=== PATIENT | female | born 1955 | race Caucasian/White ===

== ENCOUNTER 2016-09-05 18:09 | Emergency (ER) | payer MEDICAID ==
[~2016-09-05 18:09] MED LIST: ASPI-496 PO; CEFD300C37 PO; CHOL400T38 PO
[2016-09-05] MEDS ORDERED: MORPHINE SULFATE 4 MG/ML, 1ML ONE ×2 (18:59→22:22)
[2016-09-05] MEDS ORDERED: ONDANSETRON 2MG/ML, 2ML ONE (18:59)
[2016-09-05] MEDS ORDERED: OMNIPAQUE 350 MG/ML, 100ML BOTTLE ONE (21:00)
[2016-09-08 11:24] LABS: ASPARTATE AMINO TRANSFERASE 19 U/L (15-37); BLOOD UREA NITROGEN 11 mg/dL (7-18)
== END 2016-09-05 23:50 ==
LOC: ED 18:09
DX: N30.90 Cystitis, unspecified without hematuria (principal); Z88.6 Allergy status to analgesic agent
CPT/HCPCS: 36415; 74177; 80053; 81001; 83690; 85025; 87077; 87086; 87186; 99285; Q9967

== ENCOUNTER 2017-04-27 08:13 | Inpatient (IN) | payer MEDICAID ==
[~2017-04-27] VITALS: Ht 177.8 cm; Wt 128.1 kg
[~2017-04-27 08:13] MED LIST changes: -CHOL400T38 PO; +CHOL400T55 PO
[2017-04-27] MEDS ORDERED: MECLIZINE CHEWABLE 25 MG TAB ONE (08:56)
[2017-04-27] MEDS ORDERED: SODIUM CHLORIDE FLUSH 10ML SYR IVF ONE (09:00)
[2017-04-27] MEDS ORDERED: MECLIZINE CHEWABLE 25 MG TAB PO ONE (09:00)
[2017-04-27] MEDS ORDERED: SODIUM CHLORIDE 0.9% 1,000ML IVBOLUS ONE (09:00)
[2017-04-27 09:10] LABS: BASOPHILS # (AUTO) 0.05 x10^3/uL (0-0.1); BASOPHILS % (AUTO) 1 % (0-1); EOSINOPHILS # (AUTO) 0.06 x10^3/uL (0-0.4); EOSINOPHILS % (AUTO) 1 % (1-7); LYMPHOCYTES # (AUTO) 1.95 x10^3/uL (1-3.4); LYMPHOCYTES % (AUTO) 31 % (22-44); MD NO; MEAN CORPUSCULAR HGB CONC 33.5 g/dL (32.4-35.8); MEAN CORPUSCULAR VOLUME 89.5 fL (80-100); MEAN PLATELET VOLUME 7.2 fL (7.4-10.4); MONOCYTES # (AUTO) 0.34 x10^3/uL (0.2-0.8); MONOCYTES % (AUTO) 6 % (2-9); NEUTROPHILS # (AUTO) 3.81 x10^3/uL (1.8-6.8); NEUTROPHILS % (AUTO) 61 % (42-75); PLATELET COUNT 418 x10^3/uL (130-400); RED CELL DISTRIBUTION WIDTH 13.8 % (9.6-15.2)
[2017-04-27] MEDS ORDERED: METF500T4 PO (09:14)
[2017-04-27 09:19] LABS: ALANINE AMINOTRANSFERASE 31 U/L (12-78); ALBUMIN 3.7 g/dL (3.4-5.0); ANION GAP 7 mmol/L (5-15); CALCIUM 8.7 mg/dL (8.5-10.1); CHLORIDE 112 mmol/L (98-107); CREATININE 0.88 mg/dL (0.55-1.02)
[2017-04-27 09:21] LABS: ALKALINE PHOSPHATASE 106 U/L (45-117); BILIRUBIN,TOTAL 0.6 mg/dL (0.2-1.0); TOTAL PROTEIN 7.7 g/dL (6.4-8.2)
[2017-04-27] MEDS ORDERED: DIAZEPAM 5 MG/ML, 2ML IV ONE (10:00)
[2017-04-27 10:22] LABS: MICROSCOPIC INDICATED
[2017-04-27 10:43] LABS: CULTURE INDICATED? YES
[2017-04-27] MEDS ORDERED: ONDANSETRON 2MG/ML, 2ML ONE (10:55)
[2017-04-27] MEDS ORDERED: ONDANSETRON 2MG/ML, 2ML IVPush ONE (11:00)
[2017-04-27] MEDS ORDERED: CEFTRIAXONE PMX 1GM/50ML 50 ML ONE (11:56)
[2017-04-27] MEDS ORDERED: CEFTRIAXONE PMX 1GM/50ML 50 ML IV ONE (12:00)
[2017-04-27] MEDS ORDERED: HYDROmorphone 2 MG/ML, 1ML ONE (12:30)
[2017-04-27] MEDS ORDERED: LABETALOL 5MG/ML, 20ML IVPush PRN (13:00)
[2017-04-27] MEDS ORDERED: SCOPOLAMINE PATCH, 1.5MG PATCH.TD72 TD ONE (13:00)
[2017-04-27] MEDS ORDERED: DIAZEPAM 5 MG TABLET PO PRN (13:00)
[2017-04-27 13:04] VITALS: BP 154/85
[2017-04-27] MEDS: ENOXAPARIN 40 MG/0.4 ML SQ SCH (13:37)
[2017-04-27] MEDS: NS + 20MEQ KCL 1,000 ML IV SCH ×2 (13:37→21:33)
[2017-04-27] MEDS ORDERED: HYDROcodone/APAP 5/325 TABLET PO PRN (14:00)
[2017-04-27] MEDS: ACETAMINOPHEN 325 MG TABLET PO PRN (14:16)
[2017-04-27] MEDS ORDERED: PNEUMOCOCCAL 23 VACCINE IM-VACC ONE (15:30)
[2017-04-27] MEDS: ONDANSETRON 2MG/ML, 2ML IVPush PRN (15:44)
[2017-04-27] MEDS: IBUPROFEN 200 MG TABLET PO PRN (18:31)
[2017-04-27] MEDS: metFORMIN 500 MG TABLET PO SCH (20:54)
[2017-04-27 20:57] VITALS: BP 135/73
[2017-04-28 02:10] VITALS: BP 117/71
[2017-04-28] MEDS: ONDANSETRON 2MG/ML, 2ML IVPush PRN (02:26)
[2017-04-28] MEDS: MECLIZINE CHEWABLE 25 MG TAB PO PRN ×3 (05:28→23:44)
[2017-04-28] MEDS: NS + 20MEQ KCL 1,000 ML IV SCH ×3 (06:00→23:44)
[2017-04-28 06:06] LABS: CALCIUM 8.1 mg/dL (8.5-10.1); CHLORIDE 114 mmol/L (98-107)
[2017-04-28 06:10] LABS: ANION GAP 7 mmol/L (5-15); CREATININE 0.85 mg/dL (0.55-1.02)
[2017-04-28 07:00] VITALS: BP 120/76
[2017-04-28] MEDS ORDERED: SCOPOLAMINE PATCH, 1.5MG PATCH.TD72 TD ONE (07:00)
[2017-04-28] MEDS: IBUPROFEN 200 MG TABLET PO PRN (09:00)
[2017-04-28] MEDS ORDERED: CEFTRIAXONE 1,000 MG in SODIUM CHLORIDE 0.9% 50 ML IV SCH (09:00)
[2017-04-28] MEDS: ASPIRIN 81 MG TABLET EC PO SCH (09:00)
[2017-04-28] MEDS: metFORMIN 500 MG TABLET PO SCH ×2 (09:00→20:18)
[2017-04-28] MEDS: CEFTRIAXONE PMX 1GM/50ML 50 ML IV SCH (13:02)
[2017-04-28] MEDS: ENOXAPARIN 40 MG/0.4 ML SQ SCH (13:03)
[2017-04-28 13:14] VITALS: BP 133/76
[2017-04-28 20:05] VITALS: BP 154/72
[2017-04-28] MEDS: IBUPROFEN 100 MG/5 ML UDC PO PRN (23:45)
[2017-04-29 01:12] VITALS: BP 154/73
[2017-04-29] MEDS: ONDANSETRON 2MG/ML, 2ML IVPush PRN (02:06)
[2017-04-29 07:48] VITALS: BP 128/77
[2017-04-29] MEDS: metFORMIN 500 MG TABLET PO SCH ×2 (08:17→20:35)
[2017-04-29] MEDS: ASPIRIN 81 MG TABLET EC PO SCH (08:17)
[2017-04-29] MEDS: IBUPROFEN 100 MG/5 ML UDC PO PRN (11:15)
[2017-04-29] MEDS: CEFTRIAXONE PMX 1GM/50ML 50 ML IV SCH (11:25)
[2017-04-29] MEDS ORDERED: NS + 20MEQ KCL 1,000 ML IV SCH (12:33)
[2017-04-29] MEDS: ENOXAPARIN 40 MG/0.4 ML SQ SCH (13:00)
[2017-04-29 13:30] VITALS: BP 117/75
[2017-04-29] MEDS ORDERED: LORazepam 2 MG/ML, 1ML IVPush ONE (19:30)
[2017-04-29] MEDS ORDERED: LORazepam 2 MG/ML, 1ML IVPush PRN (19:30)
[2017-04-29 19:39] VITALS: BP 150/82
[2017-04-30 01:01] VITALS: BP 145/78
[2017-04-30] MEDS: ONDANSETRON 2MG/ML, 2ML IVPush PRN (03:19)
[2017-04-30] MEDS ORDERED: ONDANSETRON ODT 8 MG PO PRN (06:30)
[2017-04-30 08:39] VITALS: BP 127/65
[2017-04-30] MEDS: ASPIRIN 81 MG TABLET EC PO SCH (08:47)
[2017-04-30] MEDS: CEPHALEXIN 500 MG CAPSULE PO SCH ×2 (08:48→20:09)
[2017-04-30] MEDS: metFORMIN 500 MG TABLET PO SCH ×2 (08:48→20:09)
[2017-04-30] MEDS: ACETAMINOPHEN 325 MG TABLET PO PRN (10:29)
[2017-04-30] MEDS: ENOXAPARIN 40 MG/0.4 ML SQ SCH (12:26)
[2017-04-30 14:21] VITALS: BP 101/70
[2017-04-30] MEDS ORDERED: LORazepam INTENSOL 2 MG/ML PO PRN (15:00)
[2017-04-30 19:51] VITALS: BP 117/75
[2017-04-30] MEDS: LORazepam INTENSOL 2 MG/ML PO PRN (22:44)
[2017-05-01 01:29] VITALS: BP 102/68
[2017-05-01 08:38] VITALS: BP 120/77
[2017-05-01] MEDS: metFORMIN 500 MG TABLET PO SCH (08:54)
[2017-05-01] MEDS: ASPIRIN 81 MG TABLET EC PO SCH (08:54)
[2017-05-01] MEDS: CEPHALEXIN 500 MG CAPSULE PO SCH (08:55)
[2017-05-01] MEDS: LORazepam INTENSOL 2 MG/ML PO PRN (10:37)
[2017-05-01] MEDS ORDERED: CEPH-376 PO (12:54)
[2017-05-01] MEDS ORDERED: LORA2TAB PO (12:54)
[2017-05-01] MEDS ORDERED: ONDA4TAB12 PO (12:54)
[2017-05-01] MEDS: ENOXAPARIN 40 MG/0.4 ML SQ SCH (13:00)
[2017-05-01 13:08] VITALS: BP 110/73
== END 2017-05-01 15:00 | disposition home or self-care (01) | DRG 149 ==
LOC: ED 09:19 → EDIP 12:01 → INTOOBSV 12:01 → 3NE 12:49 → OBSVTOIN 04-28 14:20 → DCLOUNGE 05-01 14:47
PROVIDERS: ADMIT Family Medicine; ATTEND Family Medicine
DX: H83.03 Labyrinthitis, bilateral (principal); N30.00 Acute cystitis without hematuria; Z68.41 Body mass index [BMI] 40.0-44.9, adult; E11.9 Type 2 diabetes mellitus without complications; E78.00 Pure hypercholesterolemia, unspecified; B96.20 Unspecified Escherichia coli [E. coli] as the cause of diseases classified elsewhere; H35.30 Unspecified macular degeneration; M54.5 Low back pain; H54.61 Unqualified visual loss, right eye, normal vision left eye; E66.9 Obesity, unspecified; Z79.82 Long term (current) use of aspirin; Z80.0 Family history of malignant neoplasm of digestive organs; Z87.442 Personal history of urinary calculi; Z85.05 Personal history of malignant neoplasm of liver; Z87.891 Personal history of nicotine dependence; Z95.2 Presence of prosthetic heart valve; Z23 Encounter for immunization
CPT/HCPCS: 36415; 70450; 80048; 80053; 81001; 85025; 87077; 87081; 87086; 87186; 87880; 90732; 93005; 96361; 96365; 96375; G0378; J0696; J1650; J2405; J3360; J3480; J2060; J7030

== ENCOUNTER → 2017-11-17 | Outpatient (CLI) | payer MEDICAID ==
[~2017-11-17] MED LIST changes: +ALBU6.7H INH; +CEPH-376 PO; +LORA2TAB PO; +METF500T5 PO; +NITR1POW PO; +ONDA4TAB12 PO; +PRED20TA PO; +RANI150C PO
== END | disposition home or self-care (01) ==
LOC: CFH 08:16
PROVIDERS: ATTEND Internal Medicine Critical Care Medicine
DX: Z12.2 Encounter for screening for malignant neoplasm of respiratory organs (principal); J44.9 Chronic obstructive pulmonary disease, unspecified; K76.89 Other specified diseases of liver; K80.20 Calculus of gallbladder without cholecystitis without obstruction; D35.02 Benign neoplasm of left adrenal gland; Z87.891 Personal history of nicotine dependence
CPT/HCPCS: G0297

== ENCOUNTER → 2018-01-17 | Outpatient (CLI) | payer MEDICAID ==
[~2018-01-17] MED LIST changes: +METF500T17 PO; -METF500T5 PO; +REGADENOSON 0.4 MG/5 ML SYRINGE ONE
== END | disposition home or self-care (01) ==
LOC: RAD 10:34
PROVIDERS: ATTEND Internal Medicine Cardiovascular Disease
DX: Z87.891 Personal history of nicotine dependence (principal); I34.0 Nonrheumatic mitral (valve) insufficiency; R00.2 Palpitations
CPT/HCPCS: 78452; 93017; 93306; A9502; J2785

== ENCOUNTER → 2018-03-05 | Outpatient (CLI) | payer MEDICAID ==
[~2018-03-05] MED LIST changes: -REGADENOSON 0.4 MG/5 ML SYRINGE ONE
== END | disposition home or self-care (01) ==
LOC: CFH 12:34
PROVIDERS: ATTEND Nurse Practitioner Family
DX: Z02.9 Encounter for administrative examinations, unspecified (principal)

== ENCOUNTER → 2018-03-15 | Outpatient (CLI) | payer MEDICAID ==
[~2018-03-15] MED LIST changes: +OMNIPAQUE 350 MG/ML, 100ML BOTTLE ONE
== END | disposition home or self-care (01) ==
LOC: CFH 10:04
PROVIDERS: ATTEND Nurse Practitioner Family
DX: E27.8 Other specified disorders of adrenal gland (principal); J18.9 Pneumonia, unspecified organism
CPT/HCPCS: 71046; 74170; Q9967

== ENCOUNTER 2018-11-18 15:32 | Emergency (ER) | payer MEDICAID ==
[~2018-11-18] VITALS: Ht 177.8 cm; Wt 124.3 kg
[2018-11-18 19:11] VITALS: BP 134/74
== END 2018-11-18 19:17 | disposition home or self-care (01) ==
LOC: ED 16:13
DX: K52.89 Other specified noninfective gastroenteritis and colitis (principal); R19.7 Diarrhea, unspecified; R11.2 Nausea with vomiting, unspecified; E11.9 Type 2 diabetes mellitus without complications; E78.00 Pure hypercholesterolemia, unspecified
CPT/HCPCS: 36415; 74021; 76700; 80053; 81001; 85025; 87077; 87086; 87324; 89055; 96361; 96374; 96375; 99284; J2405; J2765; J7030; 87186

== ENCOUNTER 2019-03-05 14:12 | Outpatient (CLI) | payer MEDICAID ==
[~2019-03-05 14:12] MED LIST changes: -ALBU6.7H INH; +ALBU6.7H8 INH; -OMNIPAQUE 350 MG/ML, 100ML BOTTLE ONE
== END 2019-03-05 23:59 | disposition home or self-care (01) ==
LOC: CFH 14:12
PROVIDERS: ATTEND Family Medicine
DX: M50.122 Cervical disc disorder at C5-C6 level with radiculopathy (principal); M48.02 Spinal stenosis, cervical region; M51.37 Other intervertebral disc degeneration, lumbosacral region; M48.07 Spinal stenosis, lumbosacral region; M25.78 Osteophyte, vertebrae; M47.22 Other spondylosis with radiculopathy, cervical region
CPT/HCPCS: 72050; 72125; 72131

== ENCOUNTER 2019-09-13 17:11 | Emergency (ER) | payer MEDICAID ==
[~2019-09-13] VITALS: Ht 175.3 cm; Wt 120.2 kg
[~2019-09-13 17:11] MED LIST changes: +ONDA-89 PO; -ONDA4TAB12 PO
[2019-09-13] MEDS ORDERED: ONDANSETRON 2MG/ML, 2ML IVPush ONE (18:30)
--- NOTE | 2019-09-13 18:35 | NUR ---
TO CT SCAN
[2019-09-13 18:36] LABS: MICROSCOPIC INDICATED
[2019-09-13 19:08] LABS: BASOPHILS # (AUTO) 0.03 x10^3/uL (0-0.1); BASOPHILS % (AUTO) 0 % (0-1); EOSINOPHILS # (AUTO) 0.05 x10^3/uL (0-0.4); EOSINOPHILS % (AUTO) 1 % (1-7); LYMPHOCYTES # (AUTO) 3.02 x10^3/uL (1-3.4); LYMPHOCYTES % (AUTO) 33 % (22-44); MD NO; MEAN CORPUSCULAR HEMOGLOBIN 29.7 pg (27.0-34.8); MEAN CORPUSCULAR VOLUME 90.1 fL (80-100); MEAN PLATELET VOLUME 7.2 fL (7.4-10.4); MONOCYTES # (AUTO) 0.64 x10^3/uL (0.2-0.8); MONOCYTES % (AUTO) 7 % (2-9); NEUTROPHILS # (AUTO) 5.52 x10^3/uL (1.8-6.8); NEUTROPHILS % (AUTO) 60 % (42-75); PLATELET COUNT 376 x10^3/uL (130-400); RED BLOOD COUNT 4.79 x10^6/uL (3.82-5.3); RED CELL DISTRIBUTION WIDTH 13.7 % (9.6-15.2)
[2019-09-13 19:20] LABS: ALANINE AMINOTRANSFERASE 29 U/L (12-78); ALBUMIN 3.6 g/dL (3.4-5.0); ANION GAP 10 mmol/L (5-15); CALCIUM 9.1 mg/dL (8.5-10.1); CHLORIDE 111 mmol/L (98-107); CREATININE 0.94 mg/dL (0.55-1.02)
[2019-09-13 19:22] LABS: ALKALINE PHOSPHATASE 179 U/L (45-117); BILIRUBIN,TOTAL 0.5 mg/dL (0.2-1.0); TOTAL PROTEIN 7.7 g/dL (6.4-8.2)
--- NOTE | 2019-09-13 19:34 | NUR ---
ALL RESULTS ARE BACK AT THIS TIME. CHART UP FOR RECHECK.
[2019-09-13 20:40] VITALS: BP 123/61
--- NOTE | 2019-09-13 20:40 | NUR ---
PT RESTING ON [place] WATCHING TV.
--- NOTE | 2019-09-13 21:11 | NUR ---
MD AT BEDSIDE TO UPDATE PT ON POC.
[2019-09-13] MEDS ORDERED: PROMETHAZINE 25 MG/ML, 1ML IM ONE (21:30)
[2019-09-13] MEDS ORDERED: CEFTRIAXONE 1,000 MG IM ONE (21:30)
== END 2019-09-13 22:04 | disposition home or self-care (01) ==
LOC: ED 20:14
DX: R50.9 Fever, unspecified (principal); Z20.828 Contact with and (suspected) exposure to other viral communicable diseases; N10 Acute pyelonephritis; K80.20 Calculus of gallbladder without cholecystitis without obstruction; E11.9 Type 2 diabetes mellitus without complications; E78.00 Pure hypercholesterolemia, unspecified; E78.5 Hyperlipidemia, unspecified; E66.01 Morbid (severe) obesity due to excess calories; Z68.39 Body mass index [BMI] 39.0-39.9, adult
CPT/HCPCS: 36415; 74176; 80053; 81001; 83605; 83690; 85025; 87040; 87086; 99284; U0001

== ENCOUNTER → 2020-08-12 | Outpatient (CLI) | payer MEDICARE, MEDICAID | END | disposition home or self-care (01) | LOC: RAD 09:54 | PROVIDERS: ATTEND Family Medicine | DX: R11.0 Nausea (principal); R74.8 Abnormal levels of other serum enzymes; E11.9 Type 2 diabetes mellitus without complications | CPT/HCPCS: 78264; A9541 ==